=== PATIENT | male | born 1980 | race Caucasian/White ===

== ENCOUNTER 2018-02-27 19:59 | Emergency (ER) | payer OTHER ==
[~2018-02-27] VITALS: Ht 172.7 cm; Wt 90.7 kg
--- NOTE | 2018-02-27 20:49 | ED GI/GU/ABDOMINAL COMPLAINT ---
History of Present Illness General Chief Complaint: Abdominal Pain/Flank Pain Stated Complaint: ABD PAIN SINCE THIS AM PER PT Source: patient Exam Limitations: no limitations Vital Signs & Intake/Output Vital Signs & Intake/Output ED Intake and Output 03/01 0000 02/28 1200 Intake Total 1000 Output Total Balance 1000 Intake, IV 1000 Allergies Uncoded Allergies: CONTRAST DYE (Severe, ANAPHYLAXIS 03/28/17) Reconcile Medications Ibuprofen 800 MG TABLET 1 TAB PO TID PAIN Tamsulosin HCl (Flomax) 0.4 MG CAP.ER.24H 1 CAP PO DAILY MIRANDA ONEILL Triage Nurses Notes Reviewed? yes Onset: Abrupt Duration: hour(s): Timing: recent history Location: right flank, right lower quadrant Radiation: no radiation HPI: 37-year-old male comes into the emergency room with complaints of right lower abdominal pain and right lower back pain. Patient reports that the symptoms began this morning sudden onset. Some associated nausea. Pain is sharp. Severe in nature. Denies any vomiting. Comes in for further evaluation. (Tam Reynoso) Past History Travel History Traveled to [place] past 21 day No Medical History Any Pertinent Medical History? see below for history Neurological: NONE EENT: NONE Cardiovascular: NONE Respiratory: NONE Gastrointestinal: NONE Hepatic: NONE Renal: NONE Musculoskeletal: NONE Psychiatric: NONE Endocrine: NONE Blood Disorders: NONE Cancer(s): NONE TAX COMMISSIONER/Reproductive: NONE Surgical History Surgical History: non-contributory Psychosocial History Who do you live with Patient/Self What is your primary language Macanese Family History Hx Contributory? No (Tam Reynoso) Review of Systems Review of Systems Constitutional: Reports: no symptoms. EENTM: Reports: no symptoms. Respiratory: Reports: no symptoms. Cardiovascular: Reports: no symptoms. GI: Reports: see HPI. Genitourinary: Reports: see HPI. Musculoskeletal: Reports: no symptoms. Skin: Reports: no symptoms. Neurological/Psychological: Reports: no symptoms. Hematologic/Endocrine: Reports: no symptoms. Immunologic/Allergic: Reports: no symptoms. All Other Systems: Reviewed and Negative (Tam Reynoso) Physical Exam Physical Exam General Appearance: well developed/nourished, no apparent distress, alert, awake Head: atraumatic, normal appearance Eyes: Bilateral: normal appearance. Ears, Nose, Throat, Mouth: hearing grossly normal, moist mucous membrane Neck: normal inspection Respiratory: no respiratory distress Cardiovascular: regular rate/rhythm Gastrointestinal: normal bowel sounds, soft, tenderness (rlq) Back: normal inspection Extremities: normal range of motion Neurologic/Psych: awake, alert, oriented x 3, normal gait Skin: intact, normal color Core Measures ACS in differential dx? No Sepsis Present: No Sepsis Focused Exam Completed? No (Neri RAND,Tam) Progress Differential Diagnosis: appendicitis, diverticulitis, pyelonephritis, ureterolithiasis Plan of Care: Orders Procedure Date/time Status URINALYSIS 02/27 2049 Complete COMPREHENSIVE METABOLIC PANEL 02/27 2049 Complete CBC WITHOUT DIFFERENTIAL 02/27 2049 Complete Current Medications Sig/Maame Start time Last Medication Dose Stop Time Status Admin Morphine Sulfate 4 MG ONCE ONE 02/28 45 UNVr 02/28 (MORPHINE SULFATE) 02/28 46 004 Laboratory Tests 02/27/182125: Anion Gap 10, Estimated GFR 52 L, BUN/Creatinine Ratio 17.3, Glucose 90, Calcium 9.6, Total Bilirubin 0.3, AST 36, ALT 29, Alkaline Phosphatase 71, Total Protein 8.0, Albumin 4.8, Globulin 3.2, Albumin/Globulin Ratio 1.5, CBC w Diff NO MAN DIFF REQ, RBC 4.71, MCV 92.3, MCH 31.2 H, MCHC 33.8, RDW 13.7, MPV 8.5, Gran % 67.2, Lymphocytes % 19.4 L, Monocytes % 9.3, Eosinophils % 3.5, Basophils % 0.6, Absolute Granulocytes 6.2, Absolute Lymphocytes 1.8, Absolute Monocytes 0.9 H, Absolute Eosinophils 0.3, Absolute Basophils 0.1, Urine Color YEL, Urine Clarity CLEAR, Urine pH 6.5, Ur Specific [place] 1.025, Urine Protein TRACE H, Urine Ketones TRACE H, Urine Nitrite NEG, Urine Bilirubin NEG, Urine Urobilinogen 0.2, Ur Leukocyte Esterase NEG, Ur Microscopic SEDIMENT EXAMINED, Urine RBC 25-50 H, Urine WBC 1-3 H, Urine Hemoglobin MOD H, Urine Glucose NEG Diagnostic Imaging: Viewed by Me: CT Scan. Discussed w/RAD: CT Scan. Radiology Impression: PATIENT: SERGEI SIMMONS PRESENT AGE: 37 PATIENT ACCOUNT NO: [id number] : 79 LOCATION: [facility] ORDERING PHYSICIAN: Tam RAND SERVICE DATE: 02/27/18 EXAM TYPE: CAT - CT ABD & PELVIS W/O IV CONTRAS EXAMINATION: CT ABDOMEN AND PELVIS WITHOUT CONTRAST CLINICAL INFORMATION: Right lower quadrant pain. COMPARISON: None TECHNIQUE: Multidetector volumetric imaging was performed from the superior aspect of the liver through the pubic symphysis. Sagittal and coronal reformatted images were obtained on the technologist's workstation. DLP: 512.31 mGy-cm FINDINGS: LUNG BASES: The visualized lung bases are unremarkable. LIVER, GALLBLADDER, AND BILIARY TREE: The liver is normal in size, shape, and attenuation. No focal hepatic lesion or biliary ductal dilatation is present. The gallbladder is contracted. PANCREAS: Unremarkable. SPLEEN: Unremarkable. Small splenule is seen. ADRENAL GLANDS: Unremarkable. KIDNEYS AND URETERS: There is right-sided hydronephrosis present with a dilated renal pelvis and some perinephric stranding. There is a calculus seen overlying the course of what appears to be the ureter although because of lack of retroperitoneal fat the ureter is not well outlined. This calculus measures about 4 x 1.4 cm. No other renal ureteral or bladder calculi are seen. Phleboliths are noted in the pelvis. BLADDER: Unremarkable. GASTROINTESTINAL TRACT: Stomach is distended with fluid. The small and large bowel are unremarkable. The appendix is unremarkable. The terminal ileum appears normal. ABDOMINAL WALL: No significant hernia is appreciated. Tiny indirect inguinal hernia is noted on the left containing only fat. LYMPH NODES: Normal. VASCULAR: Unremarkable. PELVIC VISCERA: The seminal vesicles and prostate are unremarkable. OSSEOUS STRUCTURES: Unremarkable. IMPRESSION: 1. Right-sided hydronephrosis with probable small obstructing right ureteral calculus. 2. The appendix is normal. DICTATED BY: Reji Fox MD DATE/TIME DICTATED:02/27/182141 EXPERIMENTAL WELDER:ARSEN DATE/TIME TRANSCRIBED:02/27/182141 CONFIDENTIAL, DO NOT COPY WITHOUT APPROPRIATE AUTHORIZATION. <Electronically signed in Other Vendor System> SIGNED BY: Reji Fox MD 02/27/182226 Initial ED EKG: none (Neri RAND,Tam) Departure Departure Disposition: HOME OR SELF CARE Condition: Stable Clinical Impression Primary Impression: Kidney stone on right side Referrals: Pete Neff MD Patient Has No Primary Care Dr (PCP/Family) Additional Instructions: Follow-up with urologist provided. Return if any concerns worsening symptoms. Please go over all results of today's visit with your primary care doctor. Contact your primary care doctor to let them know you were here in the emergency room. There may be nonspecific findings which may not be related to your visit today here in the emergency room but may require further evaluation and chronic monitoring by your primary care doctor. If you had a laceration today the chance of foreign body always remains. You should follow-up with your primary care doctor for recheck in 3-5 days for a wound check. If you had an x-ray done there is a chance that a fracture could have been missed on initial read and you should follow-up with your primary care doctor for repeat x-rays if symptoms persist. If your blood pressure was elevated here in the emergency room please have rechecked by vincent primary care doctor within the next 48. If you were prescribed a narcotic here in the emergency room or any type of controlled substances you're not allowed to drive while taking this medication or operate any type of heavy machinery. Narcotics can make you feel lightheaded dizziness nausea and can cause constipation. You may need to shrimp picker a stool softener. Thank you for choosing [facility] emergency room. Please return to the emergency room immediately if you have any other concerns worsening of symptoms. Departure Forms: Customer Survey General Discharge Information Prescriptions: Current Visit Scripts Ibuprofen 1 TAB PO TID #60 TAB Tamsulosin HCl (Flomax) 1 CAP PO DAILY #15 CAP Comments Patient's pain improved. He feels significantly better. Referred to urology as outpatient. Drink plenty of fluids. (Tam Reynoso) PA/AIR INTERCEPT CONTROLLER Co-Sign Statement Statement: ED Attending supervision documentation- I saw and evaluated the patient. I have also reviewed all the pertinent lab results and diagnostic results. I agree with the findings and the plan of care as documented in the PA's/AIR INTERCEPT CONTROLLER's documentation. X I have reviewed the ED Record and agree with the PA's/AIR INTERCEPT CONTROLLER's documentation. [] Additions or exceptions (if any) to the PAs/AIR INTERCEPT CONTROLLER's note and plan are summarized below: [] (Esequiel CASE,Danis)
[2018-02-27 21:42] LABS: ABSOLUTE BASOPHIL COUNT 0.1 /CUMM (0.0-0.2); ABSOLUTE EOSINOPHIL COUNT 0.3 /CUMM (0.0-0.7); ABSOLUTE GRANULOCYTE CT 6.2 /CUMM (1.4-6.5); ABSOLUTE LYMPH COUNT 1.8 /CUMM (1.2-3.4); ABSOLUTE MONOCYTE COUNT 0.9 /CUMM (0.10-0.60); BASOPHIL % 0.6 % (0.0-2.0); EOSINOPHIL % 3.5 % (0-5); GRANULOCYTE % 67.2 % (42.2-75.2); HEMATOCRIT 43.5 % (42-52); MEAN CORPUSCULAR HGB 31.2 PG (27.0-31.0); MEAN CORPUSCULAR HGB CONC 33.8 G/DL (33.0-37.0); MEAN CORPUSCULAR VOLUME 92.3 FL (80.0-94.0); MEAN PLATELET VOLUME 8.5 FL (7.4-10.4); PLATELET COUNT 300 /CUMM (130-400); RBC DISTRIBUTION WIDTH 13.7 % (11.5-14.5); RED BLOOD CELL CT 4.71 /CUMM (4.70-6.10); WHITE BLOOD CELL COUNT 9.3 /CUMM (4.8-10.8)
--- NOTE | 2018-02-27 22:27 | CT SCAN REPORT ---
EXAMINATION: CT ABDOMEN AND PELVIS WITHOUT CONTRAST CLINICAL INFORMATION: Right lower quadrant pain. COMPARISON: None TECHNIQUE: Multidetector volumetric imaging was performed from the superior aspect of the liver through the pubic symphysis. Sagittal and coronal reformatted images were obtained on the technologist's workstation. DLP: 512.31 mGy-cm FINDINGS: LUNG BASES: The visualized lung bases are unremarkable. LIVER, GALLBLADDER, AND BILIARY TREE: The liver is normal in size, shape, and attenuation. No focal hepatic lesion or biliary ductal dilatation is present. The gallbladder is contracted. PANCREAS: Unremarkable. SPLEEN: Unremarkable. Small splenule is seen. ADRENAL GLANDS: Unremarkable. KIDNEYS AND URETERS: There is right-sided hydronephrosis present with a dilated renal pelvis and some perinephric stranding. There is a calculus seen overlying the course of what appears to be the ureter although because of lack of retroperitoneal fat the ureter is not well outlined. This calculus measures about 4 x 1.4 cm. No other renal ureteral or bladder calculi are seen. Phleboliths are noted in the pelvis. BLADDER: Unremarkable. GASTROINTESTINAL TRACT: Stomach is distended with fluid. The small and large bowel are unremarkable. The appendix is unremarkable. The terminal ileum appears normal. ABDOMINAL WALL: No significant hernia is appreciated. Tiny indirect inguinal hernia is noted on the left containing only fat. LYMPH NODES: Normal. VASCULAR: Unremarkable. PELVIC VISCERA: The seminal vesicles and prostate are unremarkable. OSSEOUS STRUCTURES: Unremarkable. IMPRESSION: 1. Right-sided hydronephrosis with probable small obstructing right ureteral calculus. 2. The appendix is normal.
[2018-02-28] MEDS ORDERED: FLOMAX0.4 M1 PO (00:49)
[2018-02-28] MEDS ORDERED: IBUPROFEN800 M1 PO (00:49)
[2018-02-28 01:04] VITALS: BP 136/88
== END 2018-02-28 01:05 ==
LOC: ERH 19:59
PROVIDERS: Physician Assistant Medical
DX: N20.0 Calculus of kidney (principal); R10.31 Right lower quadrant pain; M54.5 Low back pain
CPT/HCPCS: 74176; 81001; 96374; 96375; J1885; J2405